=== PATIENT | male | born 1995 | race American Indian/Alaskan Native ===

== ENCOUNTER 2017-06-12 12:29 | Emergency (ER) | payer OTHER ==
[2017-06-12 12:46] VITALS: BP 117/76; PULSE 75; RESP 18; TEMP 98; O2SAT 100; BMI 21.4
--- NOTE | 2017-06-12 12:55 | C.PDOC ---
History Of Present Illness A 22 year old male, who denies any significant past medical history, presents to the emergency department for evaluation of left lower facial swelling, which gradually developed for past 3 days. Patient also reports associated Left lower toothache, which has been intermittent for the past several weeks. He denies fever, chills, drooling, recent dental procedures, trismus, sore throat, dysphagia, dyspnea, or any other complaints at this time. Time Seen by Provider: 06/12/17 12:33 Chief Complaint (Nursing): Dental Pain History Per: Patient History/Exam Limitations: no limitations Onset/Duration Of Symptoms: Days (x 3 days ) Current Symptoms Are (Timing): Still Present Past Medical History Vital Signs: Last Vital Signs Temp 98.0 F 06/12/17 12:36 Pulse 75 06/12/17 12:36 Resp 18 06/12/17 12:36 BP 117/76 06/12/17 12:36 Pulse Ox 100 06/12/17 13:08 Surgical History: No Surg Hx Family History: States: No Known Family Hx - Social History Hx Alcohol Use: Yes Hx Substance Use: No - Immunization History Hx Tetanus Toxoid Vaccination: Yes Hx Influenza Vaccination: Yes Hx Pneumococcal Vaccination: Yes Review Of Systems Except As Marked, All Systems Reviewed And Found Negative. Constitutional: Negative for: Fever ENT: Positive for: Other (left lower facial swelling; left lower premolar/1st molar toothache). Negative for: Throat Pain, Throat Swelling Neurological: Negative for: Other (drooling; trismus) Physical Exam - Physical Exam Appears: Well, Non-toxic, No Acute Distress Skin: Normal Color, Warm, Dry, No Rash Head: Normacephalic Eye(s): bilateral: PERRL Ear(s): Bilateral: Normal Nose: No Flaring, No Discharge Oral Mucosa: No Drooling, No Trismus Tongue: Normal Appearing, No Swelling, No Lesions, No Bite, No Laceration, No Bleeding, No Fissured, No Erythema Lips: Normal Appearing, No Swelling, No Erythema Teeth: Caries (left lower teeth), No Dentures, Tender To Palpation (tenderness over left lower second premolar ), Other (Left lower aspect around 1st premolar- 1st molar) Gingiva: Erythema (moderate gingival edema and erythema left lower), Abscess ( early over Left lower 2nd premolar, (-) flactulance.) Throat: Normal, No Erythema, No Exudate, No Drooling, No Mass Neck: Supple, Other ((-) MENINGEALS IGN) Respiratory: No Decreased Breath Sounds, No Accessory Muscle Use, No Stridor, No Wheezing Neurological/Psych: Oriented x3, Normal Speech ED Course And Treatment O2 Sat by Pulse Oximetry: 100 Pulse Ox Interpretation: Normal Progress Note: On re-eavluation, pt is afebrile, hemodynamicaly stable. Non- toxic. Tolerate Po well in ED. PUlseOx 100% RA. ENT: exam c/w left lower facial edema, no cellulitis, early Left 2nd premolar tooth abscess, (-) flactulance. Uvual midline, no edema. No trimus, no drooling. Neck: Supple. Lungs: CTA B/L, BS equal B/L. Pt advised. ref. to f/u with Dentist in 2-3 days for re-eavl. return i any new changes. Medical Decision Making Medical Decision Making: Treatment Plan: -- Cleocin, Motrin, Ultram Progress Notes: Disposition Counseled Patient/Family Regarding: Diagnosis, Need For Followup, Rx Given - Disposition Referrals: [facility] [Provider Group] [facility] [Provider Group] Disposition: HOME/ ROUTINE Disposition Time: 12:55 Condition: STABLE Additional Instructions: Warm salty water tooth baths 2-3 times daily for 5 minutes Take medication as prescribed Follow up with Dentist in 2-3 days for re-evaluation. Return to ED if any worsening or new changes. Prescriptions: Clindamycin [Cleocin] 300 mg PO Q6 #28 cap Ibuprofen [Motrin Tab] 600 mg PO Q6 #20 tab Instructions: Dental Abscess (ED) Forms: Crunched (Salvadorean) - Clinical Impression Clinical Impression: Dental abscess - Scribe Statement The provider has reviewed the documentation as recorded by the Scribe Rachel Mathews All medical record entries made by the Scribe were at my direction and personally dictated by me. I have reviewed the chart and agree that the record accurately reflects my personal performance of the history, physical exam, medical decision making, and the department course for this patient. I have also personally directed, reviewed, and agree with the discharge instructions and disposition.
== END 2017-06-12 13:17 | disposition home or self-care (01) ==
LOC: C.ER 12:29
DX: K04.7 Periapical abscess without sinus (principal)